=== PATIENT | female | born 1975 | race Caucasian/White ===

== ENCOUNTER 2022-06-17 21:59 | Inpatient (IN) | payer MEDICAID, SELFPAY ==
[2022-06-17 22:02] VITALS: BP 184/126; PULSE 110; RESP 16; TEMP 36.6; O2SAT 99; BMI 17.8
--- NOTE | 2022-06-17 22:12 | ED.RN ---
Pt wanting to go outside to smoke and get her belongings. This nurse explained no smoking facility and that if she goes we have to restart the process. pt upset with staff member. Explained process to pt daughter and family member. Explained we are not holding the pt against her will and she can leave at any point. Pt daughter comforted pt and all remaining questions were answered by pt and family.
[2022-06-17 22:47] LABS: Amphetamine Urine VISTA NEGATIVE (<1000 ng/mL); Barbiturate Urine VISTA NEGATIVE (< 200 ng/mL); Benzodiazepine Urine VISTA NEGATIVE (< 200 ng/mL); Cocaine Urine VISTA POSITIVE (< 300 ng/mL); Ecstacy Urine VISTA NEGATIVE (< 500 ng/mL); Methadone Urine VISTA NEGATIVE (< 300 ng/mL); PCP Urine VISTA NEGATIVE (< 25 ng/mL); THC Urine VISTA NEGATIVE (< 50 ng/mL); Vista UDS pH Range 6
--- NOTE | 2022-06-17 22:52 | EKG12_ITS ---
Test Reason : SUBSTANCE ABUSE Blood Pressure : / mmHG Vent. Rate : 093 BPM Atrial Rate : 093 BPM P-R Int : 132 ms QRS Dur : 078 ms QT Int : 372 ms P-R-T Axes : 074 075 041 degrees QTc Int : 462 ms Normal sinus rhythm Possible Left atrial enlargement Nonspecific ST abnormality Abnormal ECG Confirmed by EROS ZULUAGA, YAZMIN ([id number]), newspaper editor managing URIEL NEGRON ([id number]) on 06/18/2022 1:13:20 PM Referred By: ANA LILIA Confirmed By:YAZMIN COONEY MD
[2022-06-17] MEDS: 0.9% Normal Saline 1,000 ML 999 ML IV (23:20)
[2022-06-17] MEDS: chlordiazePOXIDE 25 MG Capsule 50 MG PO (23:21)
[2022-06-17 23:24] LABS: Internal QC Validated? YES +Cl - CLEAR BKGD; Pregnancy, Serum, hCG Quali. NEGATIVE Negative
[2022-06-17 23:30] LABS: AST(SGOT) 22 U/L (15-37); Alanine Aminotransfer ALT/SGPT 25 U/L (13-56); Albumin, Serum 3.8 g/dL (3.2-5.0); Alkaline Phosphatase 60 U/L (45-117); Anion Gap 8 (5-15); BUN 13 mg/dL (7-18); BUN/Creat Ratio 15.1 RATIO (10-20); Bilirubin, Direct 0.14 mg/dL (0.00-0.30); Calcium,Total 8.8 mg/dL (8.5-10.1); Chloride 112 mmol/L (98-107); Creatinine, Serum 0.86 mg/dL (0.55-1.02); EST Glomerular Filtration Rate 75 mL/min (>60); Est Glom Filt Rate - Afr Amer 91 mL/min (>60); Estimated Creatinine Clearance 68.48 ml/min; Globulin 3.5 g/dL (2.2-4.2); Glucose 105 mg/dL (74-106); Potassium 3.3 mmol/L (3.5-5.1); Protein, Total 7.3 g/dL (6.4-8.2); Sodium Level 144 mmol/L (136-145)
[2022-06-17 23:32] LABS: Absolute Lymphocyte Count 1.98 X10^3/uL (0.83-4.51); Absolute Neutrophil Count 4.7 X10^3/uL (2.0-7.7); Basophil# 0.08 X10^3/uL; Basophil% 1.1 % (0-1); Eosinophil# 0.21 X10^3/uL; Eosinophils% 2.8 % (0-5); Hematocrit 38.4 % (37-47); Hemoglobin 12.6 g/dL (12.0-15.0); Lymphocyte # 1.98 X10^3/ul (0.83-4.51); Lymphocyte % 26.4 % (19-41); Mean Corp Hgb Conc 32.8 g/dL (32-36); Mean Corpuscular Hgb 31.3 pg (27.0-32.0); Mean Corpuscular Volume 95.5 fL (81-99); Mean Platelet Vol. 9.3 fl (6.2-12.0); Monocyte# 0.42 X10^3/uL; Monocyte% 5.6 % (0-10); NRBC Flagged by Analyzer 0 % (0-5); Neutrophil # 4.73 X10^3/uL (2.7-7.7); Neutrophil % 62.9 % (47-70); Platelet Count 234 K/mm3 (150-450); RBC Distribution Width CV 11.9 % (11.6-14.6); RBC Distribution Width SD 41.4 fl (35.1-43.9); Red Blood Count 4.02 M/mm3 (4.2-5.4); White Blood Count 7.5 K/mm3 (4.4-11.0)
[2022-06-17 23:34] LABS: Alcohol, Blood (Medical)-Serum < 3.0 mg/dL
--- NOTE | 2022-06-17 23:46 | EDS_ITS ---
HPI History of Present Illness Chief Complaint: Substance Abuse Narrative Narrative: Patient is a 46-year-old female with past medical history of bipolar disorder as well as reported alcohol abuse and cocaine abuse. She states that she typically drinks vodka daily but also does cocaine multiple times per day. She states that her last drink was on her way into the hospital. She also states that she did cocaine earlier today as well. She states that she does not have any chest pain shortness of breath or abdominal pain and she denies any homicidal or suicidal ideation. However she does feel that she needs help getting off of both cocaine and alcohol and with this presents to the hospital for evaluation [facility] Home Medications topiramate 50 mg tablet (Topamax) 50 mg PO BID 06/17/22 [History Last Taken Unknown] venlafaxine 100 mg tablet 150 mg PO DAILY 06/17/22 [History Last Taken Unknown] Allergy/AdvReac Type Severity Reaction Status Date / Time No Known Allergies Allergy Verified 06/17/22 22:03 Social History Smoking Status: Light Smoker (<10/day) [facility] ED Constitutional Constitutional ED: Denies chills or fever(s) ENT ENT ED: Denies sore throat Cardiovascular Cardiovascular: Denies chest pain Respiratory/Chest Respiratory/Chest: Denies cough or dyspnea Gastrointestinal Gastrointestinal: Denies abdominal pain, diarrhea, nausea or vomiting Genitourinary Genitourinary ED: Denies dysuria Musculoskeletal Musculoskeletal: Denies myalgias Integumentary Denies rash Neurologic Neurologic: Denies headache(s) Psychiatric Psychiatric: Denies suicidal ideation or suicidal thoughts Hematologic/Lymphatic Hematologic/Lymphatic: Denies easy bleeding or easy bruising EXAM Physical Exam Const Vital Signs: 06/17/22 22:02 Temperature 98 F Temperature Source Temporal Pulse Rate 110 H Respiratory Rate 16 Blood Pressure 184/126 H Blood Pressure Mean 145 Pulse Ox 99 Oxygen Delivery Method Room Air Positive well nourished and well developed General Appearance ED: well developed Eyes PERRL and EOMs intact bilaterally Neck supple Resp normal respiratory effort and clear to auscultation bilaterally Cardio regular rhythm Rate: tachycardic GI normal to inspection, nondistended, normoactive bowel sounds, non-tender, non- distended and no masses GI Narrative: No voluntary guarding or rigidity no pulsatile mass Auscultation: normoactive bowel sounds Palpation: soft Extremity normal to inspection Extremity Narrative: No asymmetric edema no pitting edema negative Homans' sign bilaterally Neuro oriented x3 and CN's II-XII intact bilaterally Sensorium / Orientation: alert Psych Psych Narrative: Patient has a nervous/anxious affect without homicidal or suicidal ideation Skin no rashes or lesions noted MDM MDM MDM Narrative Medical decision making narrative: Patient presented to the ER tachycardic and hypertensive consistent with her cocaine use but otherwise she had no symptoms of chest pain or shortness of breath or abdominal pain. Therefore I did not feel need for imaging study but did elect to perform an EKG as well as basic laboratory studies. EKG was sinus rhythm and lab work revealed positive cocaine consistent with her history and otherwise just mild hypokalemia but no other clinically significant changes. At this time as patient reports a longstanding history of alcohol use/abuse and this is a life-threatening withdrawal process I do feel it is more appropriate to place her in the hospital to undergo treatment for this. Therefore medicine was contacted and they do agree to accept the patient at this time. Patient and family are also agreeable to the plan of care. Lab Data Attestation: I reviewed the patient's lab results. Labs: Laboratory Results - last 24 hr 06/17/22 06/17/22 06/17/22 22:20 23:04 23:04 WBC 7.5 RBC 4.02 L Hgb 12.6 Hct 38.4 MCV 95.5 MCH 31.3 MCHC 32.8 RDW Std Deviation 41.4 RDW Coeff of Craig 11.9 Plt Count 234 MPV 9.3 Immature Gran % (Auto) 1.200 H Neut % (Auto) 62.9 Lymph % (Auto) 26.4 [place] % (Auto) 5.6 Eos % (Auto) 2.8 Baso % (Auto) 1.1 H Absolute Neuts (auto) 4.7 Absolute Lymphs (auto) 1.98 Nucleated RBC % 0 Sodium 144 Potassium 3.3 L Chloride 112 H Carbon Dioxide 24.0 Anion Gap 8 BUN 13 Creatinine 0.86 Estim Creat Clear Calc 68.48 Est GFR (MDRD) Af Amer 91 Est GFR (MDRD) Non-Af 75 BUN/Creatinine Ratio 15.1 Glucose 105 Calcium 8.8 Magnesium 2.0 Total Bilirubin 0.40 Direct Bilirubin 0.14 AST 22 ALT 25 Alkaline Phosphatase 60 Total Protein 7.3 Albumin 3.8 Globulin 3.5 Serum , Qual Urine Opiates Screen NEGATIVE Urine Methadone Screen NEGATIVE Ur Barbiturates Screen NEGATIVE Ur Phencyclidine Scrn NEGATIVE Ur Amphetamines Screen NEGATIVE MDMA (Ecstasy) Screen NEGATIVE U Benzodiazepines Scrn NEGATIVE Urine Cocaine Screen POSITIVE H U Cannabinoids Screen NEGATIVE Ur Drug Screen Comment Ethyl Alcohol 06/17/22 06/17/22 23:04 23:04 WBC RBC Hgb Hct MCV MCH MCHC RDW Std Deviation RDW Coeff of Craig Plt Count MPV Immature Gran % (Auto) Neut % (Auto) Lymph % (Auto) [place] % (Auto) Eos % (Auto) Baso % (Auto) Absolute Neuts (auto) Absolute Lymphs (auto) Nucleated RBC % Sodium Potassium Chloride Carbon Dioxide Anion Gap BUN Creatinine Estim Creat Clear Calc Est GFR (MDRD) Af Amer Est GFR (MDRD) Non-Af BUN/Creatinine Ratio Glucose Calcium Magnesium Total Bilirubin Direct Bilirubin AST ALT Alkaline Phosphatase Total Protein Albumin Globulin Serum , Qual NEGATIVE Urine Opiates Screen Urine Methadone Screen Ur Barbiturates Screen Ur Phencyclidine Scrn Ur Amphetamines Screen MDMA (Ecstasy) Screen U Benzodiazepines Scrn Urine Cocaine Screen U Cannabinoids Screen Ur Drug Screen Comment Ethyl Alcohol < 3.0 Discharge Plan Dx/Rx/DC Orders Clinical Impression: Alcohol abuse, Cocaine abuse, Desire for detoxification, Bipolar disorder, Acute hypokalemia Disposition Disposition: Acute [facility]
--- NOTE | 2022-06-17 23:46 | PCM.HP.STD ---
[facility] - General General Date of Admission: 06/17/22 Date of Service: 06/17/22 Chief Complaint: Request for detox HPI Narrative ANDRÉS DENNEY, is a 46 F who presents with the above. Patient has past medical history of bipolar disorder/schizophrenia, polysubstance use?alcohol and vodka comes in at the insistence of [facility] for medical stabilization from alcohol withdrawal. Patient admits to drinking several cups of hard proof vodka daily. She also uses cocaine. Her last use of alcohol was on the way to the ED. she admitted to feeling nervous and nauseous after being given Librium. In the emergency room, her blood pressure was 184/126, heart rate 110, respiratory rate 16, temperature 90 8F, oxygen sat is 99% on room air. Admitting blood work showed RBC count 7.5, hemoglobin 12.6, platelet count 234, sodium 144, potassium 3.3, chloride 112, bicarbonate 24 BUN 13, creatinine 0.86, LFTs unremarkable, magnesium 2.0. Urine tox positive for cocaine. Alcohol less than 3.0 PFSH Home Medications topiramate 50 mg tablet (Topamax) 50 mg PO BID 06/17/22 [History Last Taken Unknown] venlafaxine 100 mg tablet 150 mg PO DAILY 06/17/22 [History Last Taken Unknown] Allergy/AdvReac Type Severity Reaction Status Date / Time No Known Allergies Allergy Verified 06/17/22 22:03 Family History (Updated 06/18/22 @ 00:[address] Patrizia Wild MD) Father Heart disease Mother Diabetes no surgical history Social History (Updated 06/18/22 @ 00:[address] Patrizia Wild MD) household members: family Smoking Status: Light Smoker (<10/day) alcohol intake: current substance use type: crack/cocaine ROS ROS Narrative Constitutional: Denies: Anorexia, Chills, Fever, Night Sweats, Weight Change Eyes: Denies: Blurred vision, Cataracts, Conjunctivae Inflammation, Pain, Redness, Vision Change HEENT: Denies: Difficulty Hearing, Difficulty Swallowing, Head Aches, Hearing Changes, Sinus Congestion, Sinus Drainage Cardiovascular: Denies: Chest Pain, Orthopnea, Palpitations Respiratory: Denies: Cough, Shortness of breath at rest, Sputum production Gastrointestinal: Denies: Abdominal Pain, Nausea, Vomiting Genitourinary: Denies: Dysuria Musculoskeletal: Denies: Joint Pain, Joint stiffness, Joint swelling, Joint Tenderness Skin: Denies: Rash, Wounds Neurological: Denies: Numbness, Tingling, Focal weakness Vital Signs Vital Signs Vital Signs: 06/17/22 22:02 Temperature 98 F Temperature Source Temporal Pulse Rate 110 H Respiratory Rate 16 Blood Pressure 184/126 H Blood Pressure Mean 145 Pulse Ox 99 Oxygen Delivery Method Room Air Weight Weight: 53.07 kg Body Mass Index (BMI) 17.8 Physical Exam Narrative Physical exam: General: Alert, Oriented x3, Cooperative HEENT: Atraumatic Oral: Moist Mucosa Neck: Supple Lungs: Clear to auscultation Cardiovascular: HS I+II, regular, no murmurs Abdomen: Bowel Sounds Present, Soft, Non Tender Extremities: No edema Skin: No rashes, No breakdown Neurological: Grossly intact Psych/Mental Status: Appropriate Results Lab / Micro Data Result Diagrams: 06/17/22 23:04 06/17/22 23:04 Labs: Laboratory Results - last 24 hr 06/17/22 22:20: Urine Opiates Screen NEGATIVE, Urine Methadone Screen NEGATIVE, Ur Barbiturates Screen NEGATIVE, Ur Phencyclidine Scrn NEGATIVE, Ur Amphetamines Screen NEGATIVE, MDMA (Ecstasy) Screen NEGATIVE, U Benzodiazepines Scrn NEGATIVE, Urine Cocaine Screen POSITIVE H, U Cannabinoids Screen NEGATIVE, Ur Drug Screen Comment 06/17/22 23:04: WBC 7.5, RBC 4.02 L, Hgb 12.6, Hct 38.4, MCV 95.5, MCH 31.3, MCHC 32.8, RDW Std Deviation 41.4, RDW Coeff of Craig 11.9, Plt Count 234, MPV 9.3, Immature Gran % (Auto) 1.200 H, Neut % (Auto) 62.9, Lymph % (Auto) 26.4, [place] % (Auto) 5.6, Eos % (Auto) 2.8, Baso % (Auto) 1.1 H, Absolute Neuts (auto) 4.7, Absolute Lymphs (auto) 1.98, Nucleated RBC % 0 06/17/22 23:04: Sodium 144, Potassium 3.3 L, Chloride 112 H, Carbon Dioxide 24.0, Anion Gap 8, BUN 13, Creatinine 0.86, Estim Creat Clear Calc 68.48, Est GFR (MDRD) Af Amer 91, Est GFR (MDRD) Non-Af 75, BUN/Creatinine Ratio 15.1, Glucose 105, Calcium 8.8, Magnesium 2.0, Total Bilirubin 0.40, Direct Bilirubin 0.14, AST 22, ALT 25, Alkaline Phosphatase 60, Total Protein 7.3, Albumin 3.8, Globulin 3.5 06/17/22 23:04: Ethyl Alcohol < 3.0 06/17/22 23:04: Serum , Qual NEGATIVE Assessment & Plan Assessment/Plan (1) Schizophrenia: (2) Bipolar 1 disorder with moderate maryana: (3) Alcohol abuse: (4) Cocaine abuse: (5) Desire for detoxification: (6) Acute hypokalemia: PLAN: Plan 1. Request for medical stabilization acute alcohol withdrawal Admit to [facility], start on phenobarb taper, folic acid, multivitamin, and thiamine Addiction social work consult 2. Hypokalemia, potassium 3.3, replace, recheck in a.m. 3. Polysubstance use?alcohol/cocaine, advised to quit 4. Bipolar disorder/schizophrenia, continue Topamax and Effexor 5. DVT PPx-low risk, early ambulation recommended Total time spent: 55 minutes of which a greater part was spent taking history and physical examining patient, discussing plan of care with patient and daughter at the bedside. Charges/Coding Visit Charges Inpatient E&M: 89552 Init Hosp L2
[2022-06-17] MEDS: Potassium Chloride Oral Tablet 20 MEQ 40 MEQ PO (23:52)
[2022-06-18] MEDS: Ondansetron 4 MG/2 ML Vial IV (00:09)
[2022-06-18 00:14] VITALS: BP 119/84; PULSE 98; RESP 20; TEMP 37; O2SAT 100
[2022-06-18 01:11] VITALS: BMI 16.9
[2022-06-18 01:23] VITALS: BP 158/105; PULSE 98; RESP 18; TEMP 36.8; O2SAT 100
[2022-06-18] MEDS: Venlafaxine XR 150 MG Capsule PO ×2 (01:34→22:06)
[2022-06-18] MEDS: Acetaminophen 500 MG Tablet PO ×2 (01:34→22:09)
[2022-06-18] MEDS: Phenobarbital 32.4 MG Tablet 64.8 MG PO ×6 (01:34→22:05)
[2022-06-18 04:50] VITALS: BP 138/88; PULSE 81; RESP 14; TEMP 36.7; O2SAT 100
--- NOTE | 2022-06-18 08:08 | PN.HOSP_ITS ---
Subjective Subjective Patient is a 46-year-old lady with history of polysubstance abuse admitted with acute alcohol withdrawal Objective Data Objective Data Vital Signs: Vital Signs Temp Pulse Resp BP Pulse Ox O2 Del Method 98.0 F 81 14 138/88 H 100 Room Air 06/18/22 04:50 06/18/22 04:50 06/18/22 04:50 06/18/22 04:50 06/18/22 04:50 06/18/22 04:50 Oxygen Delivery Method Room Air Weight: 50.666 kg Body Mass Index (BMI) 16.9 Intake & Output: Intake and Output for Last 24 Hours 06/16/22 06/17/22 06/18/22 23:59 23:59 23:59 Intake Total 50.2 / 50.2 1051 / 1051 Balance 50.2 / 50.2 1051 / 1051 Lab / Micro Data Result Diagrams: 06/17/22 23:04 06/17/22 23:04 Labs: Laboratory Results - last 24 hr 06/17/22 22:20: Urine Opiates Screen NEGATIVE, Urine Methadone Screen NEGATIVE, Ur Barbiturates Screen NEGATIVE, Ur Phencyclidine Scrn NEGATIVE, Ur Amphetamines Screen NEGATIVE, MDMA (Ecstasy) Screen NEGATIVE, U Benzodiazepines Scrn NEGATI VE, Urine Cocaine Screen POSITIVE H, U Cannabinoids Screen NEGATIVE, Ur Drug Screen Comment 06/17/22 23:04: WBC 7.5, RBC 4.02 L, Hgb 12.6, Hct 38.4, MCV 95.5, MCH 31.3, MCHC 32.8, RDW Std Deviation 41.4, RDW Coeff of Craig 11.9, Plt Count 234, MPV 9.3, Immature Gran % (Auto) 1.200 H, Neut % (Auto) 62.9, Lymph % (Auto) 26.4, [place] % (Auto) 5.6, Eos % (Auto) 2.8, Baso % (Auto) 1.1 H, Absolute Neuts (auto) 4.7, Absolute Lymphs (auto) 1.98, Nucleated RBC % 0 06/17/22 23:04: Sodium 144, Potassium 3.3 L, Chloride 112 H, Carbon Dioxide 24.0, Anion Gap 8, BUN 13, Creatinine 0.86, Estim Creat Clear Calc 68.48, Est GFR (MDRD) Af Amer 91, Est GFR (MDRD) Non-Af 75, BUN/Creatinine Ratio 15.1, Glucose 105, Calcium 8.8, Magnesium 2.0, Total Bilirubin 0.40, Direct Bilirubin 0.14, AST 22, ALT 25, Alkaline Phosphatase 60, Total Protein 7.3, Albumin 3.8, Globulin 3.5 06/17/22 23:04: Ethyl Alcohol < 3.0 06/17/22 23:04: Serum , Qual NEGATIVE Physical Exam Narrative GENERAL: cooperative HEENT: Atraumatic; normocephalic EYES; Anicteric, Normal Conjunctiva NECK; supple, normal thyroid, RESPIRATORY: Diminished to auscultation CARDIOVASCULAR: Regular S1 S2, GI: soft, normoactive bowel sounds, : No Renal angle tenderness; EXTREMITIES: No edema, no clubbing, MUSCULOSKELETAL: no muscle wasting NEURO: Awake; no lateralizing signs. SKIN: No Rash PSYCH; Flat affect Assessment & Plan Assessment/Plan (1) Schizophrenia: (2) Bipolar 1 disorder with moderate maryana: (3) Alcohol abuse: (4) Cocaine abuse: (5) Desire for detoxification: (6) Acute hypokalemia: PLAN: Plan Patient is a 46-year-old lady with history of polysubstance abuse admitted with acute alcohol withdrawal 1. Acute alcohol withdrawal ? Patient has been admitted to regular nursing floor management for her biopsy plan 2. Hypokalemia ? Corrected per protocol repeat labs ordered for a.m. 3. Polysubstance abuse -including alcohol and cocaine counseled on cessation 4. Bipolar disorder/schizophrenia - continue Topamax and Effexor 5. DVT PPx-low risk, -early ambulation recommended Time spent in the patient's overall evaluation,decision-making process, review of diagnostic data, adjustment of management, discussion with other providers, nursing nursing and ancillary staff involved in patient's care documentation, 38 Minutes Charges/Coding Visit Charges Inpatient E&M: 24901 Subs Hosp L2
[2022-06-18] MEDS: Folic Acid 1 MG Tablet PO (08:15)
[2022-06-18] MEDS: Thiamine Hydrochloride 100 MG Tablet PO (08:15)
[2022-06-18 09:14] VITALS: BP 137/96; PULSE 67; RESP 16; TEMP 36.4; O2SAT 100
[2022-06-18] MEDS: Topiramate 50 MG Tablet PO ×2 (09:16→22:06)
--- NOTE | 2022-06-18 11:46 | NURSING ---
This RN aware of Vital Signs and Assessment by Myranda Guzmán LPN
--- NOTE | 2022-06-18 14:39 | ADDICTION ---
TW met with pt to complete ASAM, AUDIT, DUDIT, MSE, ANISH, and begin the D/C planning process. Pt presented as drowsy and irritable and had difficulty staying awake. Pt has already been screened and approved for [facility] and will be able to admit to residential upon d/c from [facility]. [facility] will provide transportation when d/c is ready.
[2022-06-18 17:09] VITALS: BP 120/86; PULSE 89; RESP 16; TEMP 36.4; O2SAT 99
[2022-06-18 22:16] VITALS: BP 125/79; PULSE 82; RESP 16; TEMP 37.2; O2SAT 100
[2022-06-19] MEDS: Phenobarbital 32.4 MG Tablet 64.8 MG PO ×6 (01:16→21:23)
[2022-06-19 04:16] VITALS: BP 125/75; PULSE 90; RESP 16; TEMP 36.9; O2SAT 99
[2022-06-19 04:50] LABS: Absolute Neutrophil Count 2.7 X10^3/uL (2.0-7.7); Basophil# 0.06 X10^3/uL; Basophil% 1.1 % (0-1); Eosinophil# 0.48 X10^3/uL; Eosinophils% 9.1 % (0-5); Hematocrit 37.1 % (37-47); Hemoglobin 12.2 g/dL (12.0-15.0); Lymphocyte % 30.4 % (19-41); Mean Corp Hgb Conc 32.9 g/dL (32-36); Mean Corpuscular Volume 97.4 fL (81-99); Mean Platelet Vol. 9.4 fl (6.2-12.0); Monocyte# 0.37 X10^3/uL; NRBC Flagged by Analyzer 0 % (0-5); Neutrophil # 2.72 X10^3/uL (2.7-7.7); Neutrophil % 51.8 % (47-70); Platelet Count 191 K/mm3 (150-450); RBC Distribution Width SD 43.1 fl (35.1-43.9); Red Blood Count 3.81 M/mm3 (4.2-5.4); White Blood Count 5.3 K/mm3 (4.4-11.0)
[2022-06-19 05:28] LABS: AST(SGOT) 13 U/L (15-37); Alanine Aminotransfer ALT/SGPT 21 U/L (13-56); Albumin, Serum 2.8 g/dL (3.2-5.0); Alkaline Phosphatase 58 U/L (45-117); Anion Gap 9 (5-15); BUN 13 mg/dL (7-18); BUN/Creat Ratio 20.4 RATIO (10-20); Bilirubin, Direct < 0.05 mg/dL (0.00-0.30); Chloride 112 mmol/L (98-107); Creatinine, Serum 0.64 mg/dL (0.55-1.02); EST Glomerular Filtration Rate 106 mL/min (>60); Est Glom Filt Rate - Afr Amer 129 mL/min (>60); Estimated Creatinine Clearance 87.85 ml/min; Glucose 106 mg/dL (74-106); Phosphorus 3.7 mg/dL (2.5-4.9); Potassium 3.6 mmol/L (3.5-5.1); Protein, Total 5.8 g/dL (6.4-8.2); Sodium Level 140 mmol/L (136-145)
[2022-06-19 07:39] VITALS: BP 107/73; PULSE 66; RESP 14; TEMP 36.6; O2SAT 100
[2022-06-19] MEDS: Folic Acid 1 MG Tablet PO (07:45)
[2022-06-19] MEDS: Thiamine Hydrochloride 100 MG Tablet PO (07:45)
--- NOTE | 2022-06-19 07:59 | PN.HOSP_ITS ---
Subjective Subjective Patient seen had a relatively uneventful night. Objective Data Objective Data Vital Signs: Vital Signs Temp Pulse Resp BP Pulse Ox O2 Del Method 97.8 F 66 14 107/73 100 Room Air 06/19/22 07:39 06/19/22 07:39 06/19/22 07:39 06/19/22 07:39 06/19/22 07:39 06/19/22 07:39 Oxygen Delivery Method Room Air Weight: 50.666 kg Body Mass Index (BMI) 16.9 Intake & Output: Intake and Output for Last 24 Hours 06/17/22 06/18/22 06/19/22 23:59 23:59 23:59 Intake Total 50.2 / 50.2 1051 / 1051 Balance 50.2 / 50.2 1051 / 1051 Lab / Micro Data Result Diagrams: 06/19/22 04:04 06/19/22 04:04 Labs: Laboratory Results - last 24 hr 06/19/22 04:04: WBC 5.3, RBC 3.81 L, Hgb 12.2, Hct 37.1, MCV 97.4, MCH 32.0, MCHC 32.9, RDW Std Deviation 43.1, RDW Coeff of Craig 12.0, Plt Count 191, MPV 9.4, Immature Gran % (Auto) 0.600, Neut % (Auto) 51.8, Lymph % (Auto) 30.4, [place] % (Auto) 7.0, Eos % (Auto) 9.1 H, Baso % (Auto) 1.1 H, Absolute Neuts (auto) 2.7, Absolute Lymphs (auto) 1.60, Nucleated RBC % 0 06/19/22 04:04: Sodium 140, Potassium 3.6, Chloride 112 H, Carbon Dioxide 19.0 L , Anion Gap 9, BUN 13, Creatinine 0.64, Estim Creat Clear Calc 87.85, Est GFR (MDRD) Af Amer 129, Est GFR (MDRD) Non-Af 106, BUN/Creatinine Ratio 20.4 H, Glucose 106, Calcium 8.0 L, Phosphorus 3.7, Magnesium 2.0, Total Bilirubin 0.20, Direct Bilirubin < 0.05, AST 13 L, ALT 21, Alkaline Phosphatase 58, Total Protein 5.8 L, Albumin 2.8 L, Globulin 3.0 Physical Exam Narrative GENERAL: cooperative HEENT: Atraumatic; normocephalic EYES; Anicteric, Normal Conjunctiva NECK; supple, normal thyroid, RESPIRATORY: Diminished to auscultation CARDIOVASCULAR: Regular S1 S2, GI: soft, normoactive bowel sounds, : No Renal angle tenderness; EXTREMITIES: No edema, no clubbing, MUSCULOSKELETAL: no muscle wasting NEURO: Awake; no lateralizing signs. SKIN: No Rash PSYCH; Flat affect Assessment & Plan Assessment/Plan (1) Schizophrenia: (2) Bipolar 1 disorder with moderate maryana: (3) Alcohol abuse: (4) Cocaine abuse: (5) Desire for detoxification: (6) Acute hypokalemia: PLAN: Plan Patient is a 46-year-old lady with history of polysubstance abuse admitted with acute alcohol withdrawal 1. Acute alcohol withdrawal ? Patient has been admitted to regular nursing floor management for her biopsy plan 2. Hypokalemia ? Corrected per protocol repeat labs ordered for a.m. 3. Polysubstance abuse -including alcohol and cocaine counseled on cessation 4. Bipolar disorder/schizophrenia - continue Topamax and Effexor 5. DVT PPx-low risk, -early ambulation recommended Time spent in the patient's overall evaluation,decision-making process, review of diagnostic data, adjustment of management, discussion with other providers, nursing nursing and ancillary staff involved in patient's care documentation, 38 Minutes Charges/Coding Visit Charges Inpatient E&M: 42891 Subs Hosp L2 Reason for Visit Reason for Visit: Diagnoses Hypokalemia (06/17/22) Alcohol abuse, uncomplicated (06/17/22) Cocaine abuse, uncomplicated (06/17/22) Schizophrenia, unspecified (06/17/22) Bipolar disorder, current episode manic without psychotic features, moderate (0 06/17/22)
[2022-06-19] MEDS: Topiramate 50 MG Tablet PO ×2 (09:11→21:23)
[2022-06-19 14:30] VITALS: BP 104/72; PULSE 77; RESP 16; TEMP 37; O2SAT 99
--- NOTE | 2022-06-19 18:14 | ADDICTION ---
TW talked to HIEN Burns to discuss d/c time/day. Pt can d/c tomorrow 06/20/22 and TW coordinated with [facility] to arrange transportation between 10AM and 10:30AM. [facility] staff will call [facility] tomorrow morning to arrange exact time.
[2022-06-19 21:18] VITALS: BP 109/68; PULSE 74; RESP 14; TEMP 36.4; O2SAT 100
[2022-06-19] MEDS: Venlafaxine XR 150 MG Capsule PO (21:23)
[2022-06-19 21:32] VITALS: PULSE 74; RESP 14; O2SAT 100
[2022-06-20] MEDS: Phenobarbital 32.4 MG Tablet 64.8 MG PO ×2 (01:12→04:05)
[2022-06-20 01:34] VITALS: BP 118/82; PULSE 74; RESP 16; TEMP 36.8; O2SAT 100
[2022-06-20 04:20] VITALS: BP 111/78; PULSE 67; RESP 15; TEMP 36.6; O2SAT 100
--- NOTE | 2022-06-20 07:29 | PCM.PN.HOSP ---
Reason for Visit Reason for Visit: Diagnoses Hypokalemia (06/17/22) Alcohol abuse, uncomplicated (06/17/22) Cocaine abuse, uncomplicated (06/17/22) Schizophrenia, unspecified (06/17/22) Bipolar disorder, current episode manic without psychotic features, moderate (06/17/22) Subjective Subjective She had a relatively uneventful night plans for patient to be assessed for possible discharge today Objective Data Objective Data Vital Signs: Vital Signs Temp Pulse Resp BP Pulse Ox O2 Del Method 97.8 F 67 15 111/78 100 Room Air 06/20/22 04:20 06/20/22 04:20 06/20/22 04:20 06/20/22 04:20 06/20/22 04:20 06/20/22 04:20 Oxygen Delivery Method Room Air Weight: 50.666 kg Body Mass Index (BMI) 16.9 Intake & Output: Intake and Output for Last 24 Hours 06/18/22 06/19/22 06/20/22 23:59 23:59 23:59 Intake Total 1051 / 1051 Balance 1051 / 1051 Lab / Micro Data Result Diagrams: 06/19/22 04:04 06/19/22 04:04 Physical Exam Narrative GENERAL: cooperative HEENT: Atraumatic; normocephalic EYES; Anicteric, Normal Conjunctiva NECK; supple, normal thyroid, RESPIRATORY: Diminished to auscultation CARDIOVASCULAR: Regular S1 S2, GI: soft, normoactive bowel sounds, : No Renal angle tenderness; EXTREMITIES: No edema, no clubbing, MUSCULOSKELETAL: no muscle wasting NEURO: Awake; no lateralizing signs. SKIN: No Rash PSYCH; Flat affect Assessment & Plan Assessment/Plan (1) Schizophrenia: (2) Bipolar 1 disorder with moderate maryana: (3) Alcohol abuse: (4) Cocaine abuse: (5) Desire for detoxification: (6) Acute hypokalemia: PLAN: Plan Patient is a 46-year-old lady with history of polysubstance abuse admitted with acute alcohol withdrawal 1. Acute alcohol withdrawal ? Patient has been admitted to regular nursing floor management for her biopsy plan 2. Hypokalemia ? Corrected per protocol repeat labs ordered for a.m. 3. Polysubstance abuse -including alcohol and cocaine counseled on cessation 4. Bipolar disorder/schizophrenia - continue Topamax and Effexor 5. DVT PPx-low risk, -early ambulation recommended Time spent in the patient's overall evaluation,decision-making process, review of diagnostic data, adjustment of management, discussion with other providers, nursing nursing and ancillary staff involved in patient's care documentation, 38 Minutes Charges/Coding Visit Charges Inpatient E&M: 58233 Subs Hosp L2
--- NOTE | 2022-06-20 08:38 | PCM.DC.SUM ---
Providers Date of Admission: 06/17/22 Date of Discharge: 06/20/22 Primary Care Physician: Dr. Ranjeet Meléndez DO Reason For Visit: ACUTE ALCOHOL WITHDRAWAL Diagnosis Discharge Diagnosis (1) Schizophrenia: Status: Acute Code(s): F20.9 - Schizophrenia, unspecified (2) Bipolar 1 disorder with moderate maryana: Status: Acute Code(s): F31.12 - Bipolar disorder, current episode manic without psychotic features, moderate (3) Alcohol abuse: Status: Acute Code(s): F10.10 - Alcohol abuse, uncomplicated (4) Cocaine abuse: Status: Acute Code(s): F14.10 - Cocaine abuse, uncomplicated (5) Desire for detoxification: Status: Acute (6) Acute hypokalemia: Status: Acute Code(s): E87.6 - Hypokalemia Plan Patient is a 46-year-old lady with history of polysubstance abuse admitted with acute alcohol withdrawal 1. Acute alcohol withdrawal ? Patient has been admitted to regular nursing floor management for her biopsy plan 2. Hypokalemia ? Corrected per protocol repeat labs ordered for a.m. 3. Polysubstance abuse -including alcohol and cocaine counseled on cessation 4. Bipolar disorder/schizophrenia - continue Topamax and Effexor 5. DVT PPx-low risk, -early ambulation recommended Time spent in the patient's overall evaluation,decision-making process, review of diagnostic data, adjustment of management, discussion with other providers, nursing nursing and ancillary staff involved in patient's care documentation, 38 Minutes Medications at Discharge Home Medications topiramate 50 mg tablet (Topamax) 50 mg PO BID Check with primary doctor 06/17/22 venlafaxine 100 mg tablet 150 mg PO QHS depression 06/17/22 Hospital Course Summary of Care Provided Minutes Spent on Discharge: 38 Physical Exam Narrative GENERAL: cooperative HEENT: Atraumatic; normocephalic EYES; Anicteric, Normal Conjunctiva NECK; supple, normal thyroid, RESPIRATORY: Diminished to auscultation CARDIOVASCULAR: Regular S1 S2, GI: soft, normoactive bowel sounds, : No Renal angle tenderness; EXTREMITIES: No edema, no clubbing, MUSCULOSKELETAL: no muscle wasting NEURO: Awake; no lateralizing signs. SKIN: No Rash PSYCH; Flat affect Weight / BMI Weight Weight: 50.666 kg Body Mass Index (BMI) 16.9 ABG / Lab / Microbiology Data Result Diagrams: 06/19/22 04:04 06/19/22 04:04 D/C Instructions Discharge Diet: No restrictions Discharge Activity: Return to Normal Activity Call your doctor if you observe: Fever of 101 or Higher, Shortness of breath, Fainting spells and Chest pain Meaningful Use Info Meaningful Use Diagnoses (Choose all that apply): None applicable Discharge Plan Admission Admit Date/Time: 06/17/22 23:41 Attending Provider: Dusty Walker Primary Care Provider: Ranjeet Meléndez Consulting Providers: Patrizia Wlid Discharge Orders/Prescriptions Prescriptions: Continued venlafaxine 100 mg Tablet 150 mg PO QHS topiramate [Topamax] 50 mg Tablet 50 mg PO BID Referrals / Follow Up: Ranjeet Meléndez DO [Primary Care Provider] - Disposition Disposition (needs filled in before D/C Order can be placed): Home, Self Care Charges/Coding Visit Charges Inpatient E&M: 42764 Disch Hosp >30min
[2022-06-20] MEDS: Topiramate 50 MG Tablet PO (09:01)
[2022-06-20 09:13] VITALS: BP 114/84; PULSE 78; RESP 16; TEMP 36.7; O2SAT 98
[2022-06-20 09:16] VITALS: BP 114/84; PULSE 78; RESP 16; TEMP 36.6; O2SAT 98
--- NOTE | 2022-06-20 09:50 | PHA.DC.MR ---
Pharmacy Service has performed discharge medication reconciliation for this patient. The patient's discharge medication list was reviewed for discrepancies and discrepancies were resolved. Home Medications topiramate 50 mg tablet (Topamax) 50 mg PO BID Check with primary doctor 06/17/22 venlafaxine 100 mg tablet 150 mg PO QHS depression 06/17/22
== END 2022-06-20 10:55 | DRG 774 ==
LOC: ED 23:47 → MS3 06-18
PROVIDERS: Admitting Provider Internal Medicine; Emergency Provider Emergency Medicine; PCP Family Medicine; Visit Provider Internal Medicine
DX: F10.239 Alcohol dependence with withdrawal, unspecified (principal); F14.10 Cocaine abuse, uncomplicated; E87.6 Hypokalemia; F20.9 Schizophrenia, unspecified; F31.12 Bipolar disorder, current episode manic without psychotic features, moderate; F17.200 Nicotine dependence, unspecified, uncomplicated; Y90.9 Presence of alcohol in blood, level not specified
CPT/HCPCS: 36415; 80048; 80076; 80307; 82077; 83735; 84100; 84703; 85025; 93005; 99285; 99406; J7030; A4216; J2405; J3490